=== PATIENT | female | born 1995 | race Caucasian/White ===

== ENCOUNTER 2017-01-28 17:45 | Emergency (ER) | payer OTHER ==
--- NOTE | 2017-01-28 20:08 | UC ---
Skin Complaint HPI - HPI Summary HPI Summary: 21 year old female presents with complains of fungus on her nails. - History of Current Complaint Time Seen by Provider: 01/28/17 20:08 Stated Complaint: NAIL COMPLAINT Hx Obtained From: Patient Hx Last Menstrual Period: Mar 2015 Onset/Duration: Sudden Onset Skin Exposure Onset/Duration: Days Ago Onset Severity: Moderate Current Severity: Moderate - Allergy/Home Medications Allergies/Adverse Reactions: Allergies Allergy/AdvReac Type Severity Reaction Status Date / Time No Known Allergies Allergy Verified 01/28/17 20:18 Home Medications: Home Medications Norethindrone Acet & Eth Estra [Loestrin 1.5/30-21 1.5-30 mg-Mcg] 1 tab PO DAILY 01/28/17 [History Confirmed 01/28/17] Review of Systems Constitutional: Negative Skin: Other - bilateral finger nail fungus Eyes: Negative ENT: Negative Respiratory: Negative Cardiovascular: Negative Gastrointestinal: Negative Genitourinary: Negative Motor: Negative Neurovascular: Negative Musculoskeletal: Negative Neurological: Negative Psychological: Negative All Other Systems Reviewed And Are Negative: Yes PMH/Surg Hx/FS Hx/Imm Hx Previously Healthy: Yes - Surgical History Surgical History: None - Social History Alcohol Use: None Substance Use Type: None Smoking Status (MU): Light Every Day Tobacco Smoker Have You Smoked in the Last Year: Yes - Immunization History Hx Tetanus, Diphtheria Vaccination: Yes Vaccination Up to Date: Yes Physical Exam Triage Information Reviewed: Yes Vital Signs Reviewed: Yes Eye Exam: Normal ENT Exam: Normal Dental Exam: Normal Neck exam: Normal Neck: Positive: 1 Respiratory Exam: Normal Cardiovascular Exam: Normal Abdominal Exam: Normal Musculoskeletal Exam: Normal Neurological Exam: Normal Psychological Exam: Normal Skin: Positive: Other - finger nail fungus Course/Dx - Diagnoses Provider Diagnoses: onychia Discharge - Discharge Plan Condition: Stable Disposition: HOME Prescriptions: Ciclopirox [Penlac Nail Lacquer] 8 % EX . DIRECTED #1 bottle DOXYcycline CAP(*) [DOXYcycline 100MG CAP(*)] 100 mg PO BID #20 cap Patient Education Materials: Nail Avulsion (ED) Referrals: Citlaly Silvestre [Medical Doctor] - Lakeisha Mullins CNM [Certified Nurse Associate School Psychologist] -
[2017-01-28 20:18] VITALS: BP 140/72
== END 2017-01-28 20:50 | disposition home or self-care (01) ==
LOC: UCCORT 17:45
DX: L03.012 Cellulitis of left finger (principal); L03.011 Cellulitis of right finger; Z72.0 Tobacco use
CPT/HCPCS: 87070; 87205; 87640; 87641; 99212; G0463

== ENCOUNTER 2018-11-23 17:40 | Emergency (ER) | payer OTHER ==
[2018-11-23 18:31] VITALS: BP 121/60
[2018-11-23] MEDS ORDERED: Albuterol HFA INHALER* 8 gm MDI INH ONE (18:41)
[2018-11-23] MEDS ORDERED: predniSONE TAB* 20 MG PO ONE (18:41)
--- NOTE | 2018-11-23 18:42 | UC ---
Respiratory Complaint HPI - HPI Summary HPI Summary: 21 yo female with two week hx of cough/wheezing worse in AM when she wakes up states she often wheezes with URIs but has never used a MDI no n/v/d no f/c she does have a sore throat which worsens with cough smoker - History of Current Complaint Chief Complaint: UCGeneralIllness Stated Complaint: CHEST PAIN, SOB, SORE THROAT Time Seen by Provider: 11/23/18 18:24 Hx Obtained From: Patient Hx Last Menstrual Period: 11/01/18 Onset/Duration: Gradual Onset, Lasting Weeks Timing: Constant Severity Initially: Mild Severity Currently: Moderate Pain Intensity: 0 Pain Scale Used: 0-10 Numeric Character: Cough: Productive Aggravating Factors: Nothing Alleviating Factors: Nothing Associated Signs And Symptoms: Positive: Dyspnea, Wheezing - Allergies/Home Medications Allergies/Adverse Reactions: Allergies Allergy/AdvReac Type Severity Reaction Status Date / Time No Known Allergies Allergy Verified 11/23/18 18:31 Home Medications: Home Medications Buprenorp/Nalox 8-2 MG SL TAB [Suboxone 8-2 mg SL TAB*] 1 tab.sl SL DAILY [History Confirmed 11/23/18] PMH/Surg Hx/FS Hx/Imm Hx Previously Healthy: Yes - Surgical History Surgical History: Yes Surgery Procedure, Year, and Place: - Family History Known Family History: Positive: Hypertension, Diabetes, Other - GM with lung CA - Social History Alcohol Use: None Substance Use Type: None Smoking Status (MU): Light Every Day Tobacco Smoker Have You Smoked in the Last Year: Yes - Immunization History Hx Tetanus, Diphtheria Vaccination: Yes Vaccination Up to Date: Yes Review of Systems All Other Systems Reviewed And Are Negative: Yes Constitutional: Positive: Fatigue Skin: Positive: Negative Eyes: Positive: Negative ENT: Positive: Sore Throat Respiratory: Positive: Shortness Of Breath - at times, Cough, Other - wheezing Cardiovascular: Positive: Negative Gastrointestinal: Positive: Negative Genitourinary: Positive: Negative Motor: Positive: Negative Neurovascular: Positive: Negative Musculoskeletal: Positive: Negative Neurological: Positive: Negative Psychological: Positive: Negative Physical Exam Triage Information Reviewed: Yes Appearance: Well-Appearing, No Pain Distress, Well-Nourished Vital Signs: Initial Vital Signs Temp 98.4 F 11/23/18 18:25 Pulse 68 11/23/18 18:25 Resp 16 11/23/18 18:25 BP 121/60 11/23/18 18:25 Pulse Ox 100 11/23/18 18:25 Eyes: Positive: Conjunctiva Clear ENT: Positive: Hearing grossly normal, Pharyngeal erythema, TMs normal, Uvula midline. Negative: Tonsillar swelling, Tonsillar exudate, Muffled voice, Hoarse voice Dental Exam: Normal Neck: Positive: Supple, Nontender, No Lymphadenopathy Respiratory: Positive: No respiratory distress, No accessory muscle use, Other: - bronchospastic cough and wheezing with forced exp Cardiovascular: Positive: RRR Musculoskeletal: Positive: Strength Intact, ROM Intact, No Edema Neurological: Positive: Alert Psychological Exam: Normal Skin Exam: Normal Respiratory Course/Dx - Differential Dx/Diagnosis Provider Diagnosis: Acute bronchitis, Smoker Discharge ED - Sign-Out/Discharge Documenting (check all that apply): Patient Departure All imaging exams completed and their final reports reviewed: No Studies - Discharge Plan Condition: Stable Disposition: HOME Prescriptions: Amoxicillin PO (*) [Amoxicillin 500 MG CAP*] 500 mg PO BID #14 cap predniSONE [Deltasone 20 MG TAB] 40 mg PO DAILY #8 tab Patient Education Materials: Acute Bronchitis (ED), How to Use a Metered-Dose Inhaler and a Spacer (ED) Referrals: Rayray Purvis NP [Primary Care Provider] - 4 Days (if not better) Additional Instructions: use inhaler as directed Please try to stop smoking recheck for worsening symptoms recheck in 4-5 days if not markedly improved - Billing Disposition and Condition Condition: STABLE Disposition: Home
== END 2018-11-23 19:04 | disposition home or self-care (01) ==
LOC: UCCORT 17:40
DX: J02.9 Acute pharyngitis, unspecified (principal); F17.290 Nicotine dependence, other tobacco product, uncomplicated
CPT/HCPCS: 99213; A9270-GY; G0463; J7512